=== PATIENT | male | born 1990 | race American Indian/Alaskan Native ===

== ENCOUNTER 2017-11-05 04:25 | Emergency (ER) | payer OTHER ==
[2017-11-05] MEDS ORDERED: TYLENOL ONE (05:16)
[2017-11-05 05:51] LABS: Basophils % (Auto) 0.6 % (0.0-1.8); Eosinophils # (Auto) 0.1 K/mm3 (0.0-0.4); Eosinophils % (Auto) 1.9 % (0.0-4.3); Hematocrit 46.9 % (35.5-45.6); Hemoglobin 15.6 gm/dl (11.8-15.2); Lymphocytes % (Auto) 44.2 % (13.4-35.0); Mean Corpuscular HGB Conc 33 % (32-34); Mean Corpuscular Hemoglobin 28 pg (28-32); Mean Corpuscular Volume 84 fl (84-94); Monocytes # (Auto) 0.5 K/mm3 (0.0-0.8); Monocytes % (Auto) 6.9 % (0.0-7.3); Platelet Count 222 K/mm3 (140-440); Red Blood Count 5.62 M/mm3 (3.65-5.03); Red Cell Distribution Width 13.8 % (13.2-15.2)
--- NOTE | 2017-11-05 05:58 | Cat Scan Report ---
FINAL REPORT EXAM: CT ABDOMEN PELVIS WO CON HISTORY: LT FLANK PAIN , HEMATURIA HX STONES TECHNIQUE: Routine axial imaging was obtained of the abdomen and pelvis without oral or IV contrast. Sagittal and coronal reconstructions were reviewed FINDINGS: The lung bases are clear. Pleural fluid is not seen. The liver, gallbladder, pancreas, spleen, and adrenal glands appear normal. Both kidneys reveal nonobstructing punctate calcifications bilaterally. There is mild left-sided hydronephrosis secondary to a partially obstructing 3.5 mm stone in the proximal left ureter. The bowel loops are normal in caliber and course. There is no evidence of free fluid or adenopathy. The appendix is not seen with certainty. There are multiple calcifications along the floor of the pelvis. Several these are on the left side. An additional stone in the distal left ureter cannot entirely be excluded. The prostate gland and bladder appear normal. The skeletal structures are well-maintained. IMPRESSION: Mild left-sided hydronephrosis secondary to a partially obstructing 3.5 mm stone in the proximal left ureter. Additional punctate nonobstructing stones in both kidneys. Multiple calcifications along the floor of the pelvis. An additional distal left ureteral calculus cannot entirely be excluded in this patient.
[2017-11-05 06:11] LABS: Alanine Aminotransferase 19 units/L (7-56); Albumin 4.2 g/dL (3.9-5); BUN/Creatinine Ratio 7; Blood Urea Nitrogen 7 mg/dL (9-20); Hemolysis Index 13
--- NOTE | 2017-11-05 09:21 | Emergency Department Report ---
ED Abdominal Pain HPI - General Chief Complaint: Abdominal Pain Stated Complaint: FLANK PAIN Time Seen by Provider: 11/05/17 09:12 Source: patient Mode of arrival: Ambulatory Limitations: No Limitations - History of Present Illness Initial Comments: Patient is 27 years old male with no significant past medical history except for kidney stones. He stated that the last episode that he had a kidney stone B years ago. Patient presented to the ER with sudden onset of left flank pain that radiated to his groin area associated with nausea but no vomiting. Patient denied any fever, urinary frequency or dysuria. Patient stated that his symptoms is improved significantly since he got to the ER he is rating his pain now as 5 out of 10. MD Complaint: abdominal pain, flank pain -: This morning Location: L flank Radiation: suprapubic Migration to: no migration Severity scale (0 -10): 5 Consistency: intermittent - Related Data Allergies Allergy/AdvReac Type Severity Reaction Status Date / Time No Known Allergies Allergy Unverified 11/05/17 05:05 ED Review of Systems ROS: Stated complaint: FLANK PAIN Other details as noted in HPI Comment: All other systems reviewed and negative Constitutional: denies: chills, fever Respiratory: denies: cough, orthopnea, shortness of breath, SOB with exertion, SOB at rest Cardiovascular: denies: chest pain, palpitations, dyspnea on exertion Gastrointestinal: abdominal pain. denies: nausea, vomiting, diarrhea, constipation, hematemesis, melena, hematochezia Musculoskeletal: back pain ED Past Medical Hx - Past Medical History Previous Medical History?: Yes Additional medical history: Kidney sones - Surgical History Past Surgical History?: No - Social History Smoking Status: Never Smoker Substance Use Type: None ED Physical Exam - General Limitations: No Limitations General appearance: alert, in no apparent distress - Head Head exam: Present: atraumatic, normocephalic, normal inspection - Eye Eye exam: Present: normal appearance, PERRL - ENT ENT exam: Present: normal exam, normal orophraynx, mucous membranes moist - Respiratory Respiratory exam: Present: normal lung sounds bilaterally - Cardiovascular Cardiovascular Exam: Present: regular rate, normal rhythm, normal heart sounds - GI/Abdominal GI/Abdominal exam: Present: soft, normal bowel sounds. Absent: distended, tenderness, guarding, rebound, rigid, organomegaly, mass, bruit, pulsatile mass , hernia - Extremities Exam Extremities exam: Present: normal inspection, full ROM, normal capillary refill. Absent: pedal edema, calf tenderness - Back Exam Back exam: Present: normal inspection, CVA tenderness (L). Absent: tenderness, CVA tenderness (R) - Neurological Exam Neurological exam: Present: alert, oriented X3, CN II-XII intact, normal gait - Skin Skin exam: Present: warm, intact, normal color ED Course Vital Signs 11/05/17 11/05/17 11/05/17 04:50 05:05 10:37 Temperature 97.8 F 97.8 F Pulse Rate 80 75 Respiratory 16 16 20 Rate Blood Pressure 143/94 143/94 O2 Sat by Pulse 100 100 100 Oximetry ED Medical Decision Making - Lab Data Result diagrams: 11/05/17 05:21 11/05/17 05:21 - Medical Decision Making Patient stated that he is feeling much better. I advised him to follow-up with a urologist in the next 2-3 days. Critical care attestation.: If time is entered above; I have spent that time in minutes in the direct care of this critically ill patient, excluding procedure time. ED Disposition Clinical Impression: Ureteric calculus, Flank pain, Kidney stone Disposition: DC-01 TO HOME OR SELFCARE Is pt being admited?: No Condition: Stable Instructions: Kidney Stones (ED), Renal Colic (ED) Referrals: ALCIDES NGUYỄN MD [Staff Physician] - 3-5 Days
[2017-11-05] MEDS ORDERED: ZOFRAN IV ONE (09:22)
[2017-11-05] MEDS ORDERED: MORPHINE IV ONE (09:22)
[2017-11-05] MEDS ORDERED: NACL 0.9% 1000 ML 1,000 ML IV ONE (09:22)
[2017-11-05 09:38] LABS: Bilirubin,Urine NEG (Negative); Blood,Urine LG (Negative); Color,Urine Yellow (Yellow); Mucus,Urine 1+ /HPF; Nitrite,Urine NEG (Negative); Urobilinogen,Urine < 2.0 mg/dL (<2.0)
[2017-11-05 09:39] LABS: RBC,Urine > 182.0 /HPF (0.0-6.0)
[2017-11-05 14:37] VITALS: BP 135/90
== END 2017-11-05 14:35 | disposition home or self-care (01) ==
LOC: ED 04:25
DX: N20.1 Calculus of ureter (principal)
CPT/HCPCS: 36415; 74176; 80053; 81001; 85025; 87086; 96361; 96374; 96375; 99284; J2270; J2405; J7030